=== PATIENT | female | born 1975 | race Caucasian/White ===

== ENCOUNTER 2019-06-16 06:07 | Day surgery (SDC) | payer OTHER ==
[2019-06-15 12:42] VITALS: BMI 22.6
[~2019-06-16 06:07] MED LIST: BUPIVACAINE HCL/PF 0.5% (5MG/ML) 10 ML VIAL IJ ONE
[2019-06-16] MEDS ORDERED: MIDAZOLAM HCL 2 MG/2 ML SINGLE DOSE VIAL ONE (08:28)
[2019-06-16] MEDS ORDERED: PROPOFOL 20 ML ONE (08:28)
[2019-06-16] MEDS ORDERED: SUCCINYLCHOLINE CHLORIDE 200 MG/10 ML SYRINGE ONE (08:28)
[2019-06-16] MEDS ORDERED: BUPIVACAINE HCL/PF 0.5% (5MG/ML) 10 ML VIAL IJ ONE (08:50)
[2019-06-16 09:23] VITALS: PULSE 58; TEMP 97.9
[2019-06-16 10:10] VITALS: BP 118/74
[2019-06-16] MEDS ORDERED: oxyCODONE HCL 5 MG TABLET PO PRN (12:07)
[2019-06-16] MEDS ORDERED: ACETAMINOPHEN 325 MG TABLET (FP) PO PRN (12:07)
[2019-06-16] MEDS ORDERED: ONDANSETRON 4 MG/2 ML VIAL IVPUSH PRN (12:07)
[2019-06-16] MEDS ORDERED: LACTATED RINGERS SOLUTION 1,000 ML IV SCH (12:15)
--- NOTE | 2019-06-18 20:56 | PROC ---
Procedure Note Procedure: Date: 06/16/2019 : 1975 Age: 44 Year(s) Sex: Female Name of the patient: Jacque Howell Preoperative Diagnosis: Neck pain/ cervical spondylosis/ cervical Facet arthropathy left Postoperative Diagnosis: Same Procedure Performed: Cervical Medial Branch block C5, C6 & C4 on Left in [facility] Anesthesia: Local/MAC Procedure: I discussed with the patient in detail about the risks, benefits and alternatives to treatment not only limited to infection, headache, numbness, weakness and injury to nerves, spinal cord, blood vessels and muscles. The patient understood, agreed and signed the written consent. The patient was escorted to the fluoroscopic suite and placed in the After povidone-iodine preparation three times, and alcoholx3, the site was draped in sterile fashion. Centroid of cervical pillars were visualized under fluoroscopic imaging, and 1.5 inch 25 G needle was advanced to the x-ray beam to abut to the cervical pillar to the centroid position of C5 on Left . After negative aspiration of blood. 0.5 ml of Marcaine was injected. Similar procedure was repeated at Left C6 and C4 levels. Bleeding was checked and bandage was placed. The needle was withdrawn and bleeding was checked and bandage was placed. There was no evidence of procedural complications. The patient has significant of relief of pain more than 80%. The patient was transferred to the recovery room. The patient was observed for some time and discharged with a family as per [facility]. Patient wa stold to apply ice and if anyproblem call me or report to ER. Call [phone] for appointment. . Agustin López M.D.
== END 2019-06-16 09:50 | disposition home or self-care (01) ==
LOC: JASU-SURG 06:07
PROVIDERS: ATTEND Physical Medicine & Rehabilitation
PROC: BR14YZZ Fluoroscopy of Cervical Facet Joint(s) using Other Contrast (ICD-10-PCS; 2019-06-16)
PROC: 3E0T3BZ Introduction of Anesthetic Agent into Peripheral Nerves and Plexi, Percutaneous Approach (ICD-10-PCS; principal; 2019-06-16 08:00)
DX: M47.892 Other spondylosis, cervical region (principal); M54.2 Cervicalgia; M12.88 Other specific arthropathies, not elsewhere classified, other specified site
CPT/HCPCS: 76000-TC-FY; 84703

== ENCOUNTER 2020-12-05 17:43 | Emergency (ER) | payer OTHER ==
[2020-12-05 18:21] VITALS: BP 99/69; PULSE 88; TEMP 99.1; BMI 24.2
[2020-12-05 20:46] LABS: URINE APPEARANCE CLEAR; URINE BILIRUBIN NEGATIVE (NEGATIVE); URINE COLOR YELLOW; URINE GLUCOSE (UA) NEGATIVE (NEGATIVE); URINE KETONE TRACE (NEGATIVE); URINE LEUK ESTERASE NEGATIVE (NEGATIVE); URINE NITRITE NEGATIVE (NEGATIVE); URINE PROTEIN NEGATIVE (NEGATIVE); URINE UROBILINOGEN 0.2 mg/dL (0.2-1.0)
== END 2020-12-05 21:30 | disposition home or self-care (01) ==
LOC: JER 17:43
DX: J06.9 Acute upper respiratory infection, unspecified (principal); B34.9 Viral infection, unspecified
CPT/HCPCS: 71046-TC-FY; 81003; 87086; 87880; 99284-25; C9803; U0003; U0005

== ENCOUNTER 2024-03-03 04:59 | Day surgery (SDC) | payer OTHER ==
[2024-03-01 15:38] VITALS: BMI 24.7
[2024-03-03] MEDS: LIDOCAINE HCL 1% PRESERVATIVE FREE - 30ML VIAL IJ ONE
[2024-03-03] MEDS: BUPIVACAINE HCL/PF 0.75% 10 ML VIAL NR ONE
[2024-03-03] MEDS: IOHEXOL 180 MG/1 ML ML IJ ONE
[2024-03-03] MEDS ORDERED: LIDOCAINE HCL/PF 1% SDV 5ML VIAL ONE (07:25)
[2024-03-03] MEDS ORDERED: BUPIVACAINE HCL/PF 0.5% (5MG/ML) 10 ML VIAL ONE ×2 (07:25→07:34)
[2024-03-03] MEDS ORDERED: SODIUM CHLORIDE 0.9% P/F 10 ML VIAL IJ ONE (07:55)
[2024-03-03] MEDS: BUPIVACAINE HCL/PF 0.5% (5MG/ML) 10 ML VIAL NR ONE ×2 (08:48)
[2024-03-03] MEDS ORDERED: ACETAMINOPHEN 500 MG TABLET (FP) PO PRN (08:58)
[2024-03-03 09:05] VITALS: PULSE 53
[2024-03-03 10:05] VITALS: BP 116/74; RESP 18; TEMP 98.1
== END 2024-03-03 10:11 | disposition home or self-care (01) ==
LOC: JASU-SURG 04:59
PROVIDERS: ATTEND Pain Medicine Pain Medicine
PROC: 3E0T33Z Introduction of Anti-inflammatory into Peripheral Nerves and Plexi, Percutaneous Approach (ICD-10-PCS; 2024-03-03)
PROC: 3E0T3BZ Introduction of Anesthetic Agent into Peripheral Nerves and Plexi, Percutaneous Approach (ICD-10-PCS; principal; 2024-03-03 08:15)
DX: M47.812 Spondylosis without myelopathy or radiculopathy, cervical region (principal)
CPT/HCPCS: 76000-TC-FY

== ENCOUNTER 2024-06-15 07:22 | Day surgery (SDC) | payer OTHER ==
[2024-06-13 10:54] VITALS: BMI 24.7
[2024-06-15] MEDS ORDERED: ACETAMINOPHEN 500 MG TABLET (FP) PO PRN (09:07)
[2024-06-15] MEDS: LIDOCAINE HCL 1% PRESERVATIVE FREE - 30ML VIAL EP ONE (14:47)
[2024-06-15] MEDS: IOHEXOL 180 MG/1 ML ML IT ONE (14:48)
[2024-06-15] MEDS: BUPIVACAINE HCL/PF 0.5% (5MG/ML) 10 ML VIAL IJ ONE (14:50)
[2024-06-15 16:00] VITALS: BP 107/77; PULSE 69; RESP 18; TEMP 97.5
== END 2024-06-15 15:30 | disposition home or self-care (01) ==
LOC: JASU-SURG 07:22
PROVIDERS: ATTEND Pain Medicine Pain Medicine
PROC: 3E0T33Z Introduction of Anti-inflammatory into Peripheral Nerves and Plexi, Percutaneous Approach (ICD-10-PCS; 2024-06-15)
PROC: BR14YZZ Fluoroscopy of Cervical Facet Joint(s) using Other Contrast (ICD-10-PCS; 2024-06-15)
PROC: 3E0T3BZ Introduction of Anesthetic Agent into Peripheral Nerves and Plexi, Percutaneous Approach (ICD-10-PCS; principal; 2024-06-15 15:15)
DX: M47.812 Spondylosis without myelopathy or radiculopathy, cervical region (principal)
CPT/HCPCS: 76000-TC-FY